=== PATIENT | female | born 1995 | race Caucasian/White ===

== ENCOUNTER → 2017-03-28 | Day surgery (SDC) | payer BC ==
[~2017-03-28] VITALS: Ht 147.3 cm; Wt 72.6 kg
[~2017-03-28] MED LIST: ADIPEX-P37.5 M1 PO; DEPO-PROVE150 MG/11 IM; FLAGYL500 MG PO; IBUPROFEN800 MG PO; LACTINEX TABLET1 EA PO; LEVAQUIN500 MG PO; LORCET 5-325 M1 EACH PO; SPRINTEC 28 DA1 EACH PO; ZOFRAN4 MG PO
== END | disposition home or self-care (01) ==
LOC: OR 07:28
PROVIDERS: Internal Medicine Gastroenterology
PROC: 0DJD8ZZ Inspection of Lower Intestinal Tract, Via Natural or Artificial Opening Endoscopic (ICD-10-PCS; principal; 2017-03-28 10:00)
DX: K60.2 Anal fissure, unspecified (principal); K64.0 First degree hemorrhoids; K57.30 Diverticulosis of large intestine without perforation or abscess without bleeding; K62.5 Hemorrhage of anus and rectum; K59.09 Other constipation; N80.9 Endometriosis, unspecified; E66.9 Obesity, unspecified; F17.210 Nicotine dependence, cigarettes, uncomplicated; Z88.1 Allergy status to other antibiotic agents; Z91.040 Latex allergy status; Z79.899 Other long term (current) drug therapy; Z90.89 Acquired absence of other organs; Z87.440 Personal history of urinary (tract) infections; Z86.69 Personal history of other diseases of the nervous system and sense organs
CPT/HCPCS: 84703; J2001; J7030

== ENCOUNTER 2017-05-13 20:37 | Emergency (ER) | payer BC ==
[2017-05-13 22:25] LABS: HEMOGLOBIN 15.1 gm/dl (12.3-15.3); RED BLOOD COUNT 4.71 M/UL (4.00-5.10); WHITE BLOOD COUNT 11.3 K/UL (4.5-11.0)
[2017-05-13 22:50] LABS: BUN/CREATININE RATIO 16 (0-10)
== END 2017-05-14 00:35 | disposition home or self-care (01) ==
LOC: ER1 20:37
PROVIDERS: Emergency Medicine
DX: R10.9 Unspecified abdominal pain (principal); E16.2 Hypoglycemia, unspecified; N39.0 Urinary tract infection, site not specified; Z91.040 Latex allergy status; Z88.1 Allergy status to other antibiotic agents
CPT/HCPCS: 36415; 80053; 81001; 83605; 84703; 85025; 87040; 87086; 96361; 96374; 96375; 99284; J0696; J2270; J2405; J7050; Q9962